=== PATIENT | female | born 1990 | race Hispanic/Latino ===

== ENCOUNTER 2017-05-14 12:14 | Emergency (ER) | payer MEDICAID, OTHER | END 2017-05-14 12:42 | disposition home or self-care (01) | LOC: EDH 12:14 | DX: K04.7 Periapical abscess without sinus (principal) ==

== ENCOUNTER 2017-05-29 09:28 | Emergency (ER) | payer SELFPAY | END 2017-05-29 10:14 | disposition home or self-care (01) | LOC: EDH 09:28 | DX: R05 Cough (principal) | CPT/HCPCS: 99281 ==

== ENCOUNTER 2022-04-16 08:05 | Emergency (ER) | payer OTHER ==
[~2022-04-16] VITALS: Ht 157.5 cm; Wt 90.7 kg
[2022-04-16 08:10] VITALS: BP 152/94
[2022-04-16] MEDS ORDERED: CEPH500B PO (08:22)
== END 2022-04-16 08:33 | disposition home or self-care (01) ==
LOC: EDH 08:05
DX: L03.113 Cellulitis of right upper limb (principal); I10 Essential (primary) hypertension

== ENCOUNTER 2022-08-18 12:28 | Emergency (ER) | payer OTHER ==
[~2022-08-18] VITALS: Ht 157.5 cm; Wt 93.0 kg
[~2022-08-18 12:28] MED LIST: CEPH500B PO
[2022-08-18 12:31] VITALS: BP 157/107
[2022-08-18 13:31] LABS: BASOPHILS % (AUTO) 0.5 % (0.0-5.0); EOSINOPHILS % (AUTO) 1.6 % (0.0-8.0); HEMATOCRIT 39.3 % (36-48); LYMPHOCYTES % (AUTO) 22.3 % (21.0-51.0); MEAN CORPUSCULAR HEMOGLOBIN 24.4 pg (27.0-33.0); MEAN CORPUSCULAR HGB CONC 32.1 g/dL (32.0-36.0); MONOCYTES % (AUTO) 4.8 % (3.0-13.0); NEUTROPHILS % (AUTO) 70.1 % (40.0-77.0); PLATELET COUNT (AUTO) 327 K/uL (130-400); RED BLOOD CELL COUNT(AUTO) 5.17 MIL/uL (4.00-5.50); RED CELL DISTRIBUTION WIDTH 13.5 % (11.0-15.5); WHITE BLOOD COUNT (AUTO) 8.6 K/uL (4.8-10.8)
[2022-08-18 13:56] LABS: CREATININE 0.9 mg/dL (0.5-1.5); POTASSIUM 3.4 mmol/L (3.5-5.1)
[2022-08-18 14:00] LABS: ALBUMIN 3.8 g/dL (3.5-5.0)
[2022-08-18 14:45] LABS: APPEARANCE,URINE CLEAR (CLEAR); BILIRUBIN,URINE NEGATIVE (NEGATIVE); COLOR,URINE COLORLESS (YELLOW); GLUCOSE, URINE (UA) NEGATIVE (NEGATIVE); KETONES,URINE NEGATIVE (NEGATIVE); LEUKOCYTE ESTERASE ,URINE NEGATIVE Leu/uL (NEGATIVE); NITRATE,URINE NEGATIVE (NEGATIVE); PROTEIN,URINE NEGATIVE (NEGATIVE); UROBILINOGEN,URINE 0.2 mg/dL (0.2-1.0)
[2022-08-18 14:59] LABS: BACTERIA,URINE RARE /HPF (None Seen); MUCUS,URINE RARE LPF (None Seen); RBC,URINE 0-1 /HPF (0-1); SQUAMOUS EPITHELIAL CELL,UR MOD /HPF (0-2)
[2022-08-18] MEDS ORDERED: IPRATROPIUM 0.5 MG/2.5 ML INH IH ONE (15:30)
[2022-08-18] MEDS ORDERED: ALBUTEROL 0.083% 2.5 MG/3 ML INH IH ONE (15:30)
[2022-08-18] MEDS ORDERED: ALBUHFA IH (15:51)
== END 2022-08-18 16:01 | disposition home or self-care (01) ==
LOC: EDH 12:28
DX: J98.01 Acute bronchospasm (principal); I10 Essential (primary) hypertension
CPT/HCPCS: 36415; 71045; 80053; 81001; 84484; 85025; 93005; 94640

== ENCOUNTER 2024-01-26 12:52 | Emergency (ER) | payer OTHER ==
[~2024-01-26] VITALS: Ht 157.5 cm; Wt 91.6 kg
[~2024-01-26 12:52] MED LIST changes: +ALBUHFA IH
--- NOTE | 2024-01-26 13:26 | EKG ---
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
--- NOTE | 2024-01-26 13:49 | ERN ---
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 Patient reports headache, dizziness, vomiting, but denies any other associated symptoms at this time. As per patient see went to see her PCP for her symptoms and she was sent to the ER due to having a blood pressure of 200/140. Patient states her blood pressure really runs in the 140s systolic. Patient also mentioned she stopped taking her blood pressure medications 2 months ago because she ran out. Allergies: Coded Allergies: No Known Allergies (Unverified Allergy, Unknown, 04/16/22) Home Meds Active Scripts Albuterol Sulfate (Ventolin Hfa/Proventil Hfa/Proair Hfa) 90 Mcg/Puff Puff, 1 PUFF IH Q4H PRN for SHORTNESS OF BREATH for 5 Days, #1 INH 0 Refills PHARMACY TO DISPENSE 1 INHALER FOR USE Prov:BLAIRE CACERES MD 08/18/22 Cephalexin Monohydrate (Keflex) 500 Mg Cap, 500 MG PO TID for 7 Days, #21 CAP Prov:LUZ MARINA MCCLELLAND MD 04/16/22 Past Medical History Past Medical History: Hypertension Surgical History: None Social History: Negative LMP: Jan 12, 2024 : 3 Para: 3 Aborts: 0 Review of System Dictation Constitutional: Negative for fever,chills, and weight loss Eyes: Negative for injury, pain,redness, and discharge ENT: Negative for injury,pain or swelling Cardiovascular: Negative for chest pain, palpitations, and edema Respiratory: Negative for shortness of breath, cough, and wheezing, Abdomen/GI: Positive for nausea, vomiting,Negative for abdominal pain, diarrhea, and constipation Back: Negative for injury and pain : Negative for injury, bleeding and discharge MS/Extremity: Negative for injury and deformity Skin: Negative for rash, and discoloration Neuro: Positive for dizziness, headache negative for weakness, numbness, tingling, and seizure Psych: Negative for suicide ideation, homicidal ideation, and hallucinations Initial Vital Sign VS Vital Signs Date Time Temp Pulse Resp B/P (MAP) Pulse Ox O2 Delivery O2 Flow Rate FiO2 01/26/24 13:36 97.9 72 20 213/133 100 Room Air 0 01/26/24 17:06 21 Physical Exam Dictation General: awake, alert, NAD Head/Face: Normocephalic, atraumatic Eyes: PERRL, EOMI, vision at baseline ENT: oral cavity clear, TMs clear, no signs of infection Neck: Trachea midline, supple, no nuchal rigidity Cardiovascular: RRR, normal S1/S2, No MRGs, no JVD Respiratory: CTAB, no respiratory distress, No rales or wheezes Abdomen: Soft, non-tender, non-distended, normal bowel sounds, no guarding or rebound. Skin: Warm, dry, normal turgor, no rash MS/Extremity: Pulses equal, no cyanosis, neurovascular intact, FROM Neuro: COAx4, GCS 15, strength 5/5, CN 2-12 intact, normal cerebellar exam, normal gait, Psych: Normal behavior, mood, and affect normal Results (Laboratory/Radiology) Laboratory/Radiology Laboratory Tests Test 01/26/24 13:45 White Blood Count 6.6 K/uL (4.8-10.8) Red Blood Count 5.37 MIL/uL (4.00-5.50) Hemoglobin 12.2 g/dL (12.0-16.0) Hematocrit 40.0 % (36-48) Mean Corpuscular Volume 74.5 fL (79-99) L Mean Corpuscular Hemoglobin 22.7 pg (27.0-33.0) L Mean Corpuscular Hemoglobin Concent 30.5 g/dL (32.0-36.0) L Red Cell Distribution Width 13.7 % (11.0-15.5) Platelet Count 338 K/uL (130-400) Mean Platelet Volume 8.8 fL (7.5-10.5) Immature Granulocyte % (Auto) 0.5 % (0-1) Neutrophils (%) (Auto) 65.1 % (40.0-77.0) Lymphocytes (%) (Auto) 28.2 % (21.0-51.0) Monocytes (%) (Auto) 4.6 % (3.0-13.0) Eosinophils (%) (Auto) 1.1 % (0.0-8.0) Basophils (%) (Auto) 0.5 % (0.0-5.0) Neutrophils # (Auto) 4.3 K/uL (1.8-7.7) Lymphocytes # (Auto) 1.9 K/uL (1.0-4.8) Monocytes # (Auto) 0.3 K/uL (0.1-1.0) Eosinophils # (Auto) 0.07 K/uL (0.00-0.70) Basophils # (Auto) 0.03 K/uL (0.00-0.20) Absolute Immature Granulocyte (auto 0.03 K/uL (0-1) Nucleated Red Blood Cells 0.0 % (0.0-0.19) Red Blood Cell Morphology See comments Sodium Level 141 mmol/L (136-145) Potassium Level 3.5 mmol/L (3.5-5.1) Chloride Level 103 mmol/L (101-111) Carbon Dioxide Level 30 mmol/L (21-32) Blood Urea Nitrogen 10 mg/dL (7-18) Creatinine 0.8 mg/dL (0.5-1.0) Glomerular Filtration Rate Calc 100 mL/min (>90) Random Glucose 84 mg/dL (70-105) Total Calcium 9.2 mg/dL (8.5-10.1) Troponin I High Sensitivity 5 ng/L (4-50) B-Type Natriuretic Peptide 8 pg/mL (0-100) Labs Reviewed?: Yes EKG Comment: EKG 01/26/2024 time 1:20 p.m. ventricular rate 68, FL 144, QRS D 88, QT 387. Sinus rhythm, nonspecific T abnormalities, lateral leads. No STEMI ED Course ED Course Orders Procedure Category Date Status Time 12 Lead Ekg Tracing- EKG 01/26/24 Complete Technical 13:18 Basic Metabolic Panel LAB 01/26/24 Complete 13:18 Cbc With Differential LAB 01/26/24 Complete 13:18 B-Type Natriuretic LAB 01/26/24 Complete Peptide 13:44 Troponin I High LAB 01/26/24 Complete Sensitivity 13:44 Labetalol 20mg Syg PHA 01/26/24 Complete (Trandate 20mg Syg) 14:00 Labetalol 20mg Syg PHA 01/26/24 Complete (Trandate 20mg Syg) 18:00 Current Medications Medications (Trade) Dose Ordered Sig/Bear Route PRN Reason Start Time Stop Time Status Last Admin Dose Admin Labetalol HCl (TRANdate 20MG SYG) 10 mg ONCE ONCE IV 01/26/24 14:00 01/26/24 14:01 DC 01/26/24 16:59 Labetalol HCl (TRANdate 20MG SYG) 10 mg ONCE ONCE IV 01/26/24 18:00 01/26/24 18:01 DC Vital Signs Date Time Temp Pulse Resp B/P (MAP) Pulse Ox O2 Delivery O2 Flow Rate FiO2 01/26/24 17:35 97.9 78 18 175/108 100 Room Air* 0 21 01/26/24 17:06 77 18 172/107 100 Room Air* 0 21 01/26/24 16:59 77 172/107 01/26/24 13:36 97.9 72 20 213/133 100 Room Air 0 HEART Score Response (Comments) Value History: Low suspicion (0) 0 EKG: Normal 0 Age: < 45yrs (0) 0 Risk Factors: 1-2 risk factors (+1) 1 Initial Troponin: Normal limit (0) 0 HEART Score Risk: Low Risk for MACE (1-3) Total 1 Medical Decision Making MDM MDM: Differential diagnosis: Hypertensive urgency, hypertension, noncompliant Previous outside records reviewed: Old ER visits. Need for hospitalization: Patient does not meet criteria for hospitalization. Need for emergency major/minor surgery: No Patient's prior external medical records from other ER visits were reviewed by me as indicated. Prior testing and results from previous visits were reviewed. Prior tests were taken into account with medical decision making and resource utilization, independent historian/historians were used to obtain complete medical history. I independently interpreted the test that were performed, results were reviewed by me and considered findings on radiology if ordered. Medical management and examination interpretation discussions were had by me with other qualified healthcare professionals as indicated for the patient's care. DX & DISP Disposition: Discharge Departure Impression: Primary Impression: Hypertension Condition: Stable Referrals: SHARIFA ALLEN MD (PCP) CHRISTINA TERRAZAS MD Jan 26, 2024 13:49
[2024-01-26 14:03] LABS: BASOPHILS # (AUTO) 0.03 K/uL (0.00-0.20); BASOPHILS % (AUTO) 0.5 % (0.0-5.0); EOSINOPHILS # (AUTO) 0.07 K/uL (0.00-0.70); EOSINOPHILS % (AUTO) 1.1 % (0.0-8.0); IMMATURE GRANULOCYTE ABSOLUTE 0.03 K/uL (0-1); LYMPHOCYTES # (AUTO) 1.9 K/uL (1.0-4.8); LYMPHOCYTES % (AUTO) 28.2 % (21.0-51.0); MEAN CORPUSCULAR HEMOGLOBIN 22.7 pg (27.0-33.0); MEAN CORPUSCULAR HGB CONC 30.5 g/dL (32.0-36.0); MEAN CORPUSCULAR VOLUME 74.5 fL (79-99); MONOCYTES # (AUTO) 0.3 K/uL (0.1-1.0); MONOCYTES % (AUTO) 4.6 % (3.0-13.0); NEUTROPHILS # (AUTO) 4.3 K/uL (1.8-7.7); NEUTROPHILS % (AUTO) 65.1 % (40.0-77.0); PLATELET COUNT (AUTO) 338 K/uL (130-400); RED BLOOD CELL COUNT(AUTO) 5.37 MIL/uL (4.00-5.50); RED CELL DISTRIBUTION WIDTH 13.7 % (11.0-15.5); WHITE BLOOD COUNT (AUTO) 6.6 K/uL (4.8-10.8)
[2024-01-26 14:13] LABS: CREATININE 0.8 mg/dL (0.5-1.0); POTASSIUM 3.5 mmol/L (3.5-5.1)
[2024-01-26] MEDS: LAbetaLOL 20MG SYG IV ONE ×2 (16:59→18:17)
[2024-01-26] MEDS: cloNIDine HCL 0.1 MG TABLET PO ONE (18:53)
[2024-01-26 19:26] VITALS: BP 157/104; PULSE 84; RESP 18; TEMP 98.2; O2SAT 99
== END 2024-01-26 19:36 | disposition home or self-care (01) ==
LOC: EDH 12:52
DX: I10 Essential (primary) hypertension (principal)
CPT/HCPCS: 36415; 80048; 83880; 84484; 85025; 93005; 96374; 96376; 99285